=== PATIENT | female | born 1940 | race Hispanic/Latino ===

== ENCOUNTER 2017-05-28 07:20 | Day surgery (SDC) | payer MEDICARE ==
[~2017-05-28] VITALS: Ht 162.6 cm; Wt 83.9 kg
[~2017-05-28 07:20] MED LIST: DULO60CA44 PO; ESOM40CA PO; FENT25PAT TD; HYDR-4060 PO; LEVO75TA10 PO; LINA145C PO; LOSA50TA37 PO; NITR0.4T50 SL; SODIUM CHLORIDE 0.9% 1000ML 1,000 ML IV ONE
[2017-05-28 08:04] VITALS: BP 124/61
[2017-05-28 08:08] LABS: BASOPHILS % (AUTO) 0.8 % (0.0-5.0); EOSINOPHILS % (AUTO) 2.1 % (0.0-8.0); HEMATOCRIT 38.1 % (36-48); LYMPHOCYTES % (AUTO) 32.5 % (21.0-51.0); MEAN CORPUSCULAR HEMOGLOBIN 27.3 pg (27.0-33.0); MEAN CORPUSCULAR HGB CONC 32.9 g/dL (32.0-36.0); MEAN CORPUSCULAR VOLUME 82.9 fL (79-99); MONOCYTES % (AUTO) 9.2 % (3.0-13.0); NEUTROPHILS % (AUTO) 55.4 % (40.0-77.0); NUCLEATED RED BLOOD CELLS 0.2 % (0.0-0.19); PLATELET COUNT (AUTO) 110 K/uL (130-400); RED BLOOD CELL COUNT(AUTO) 4.59 MIL/uL (4.00-5.50); RED CELL DISTRIBUTION WIDTH 14.7 % (11.0-15.5); WHITE BLOOD COUNT (AUTO) 5.6 K/uL (4.8-10.8)
[2017-05-28 08:10] VITALS: BP 124/61
[2017-05-28] MEDS ORDERED: ERGO500014 PO (08:17)
[2017-05-28] MEDS ORDERED: LECI400C4 PO (08:24)
[2017-05-28] MEDS ORDERED: CYAN500 PO (08:24)
[2017-05-28] MEDS ORDERED: PREM625 PO (08:24)
[2017-05-28] MEDS ORDERED: PROPOFOL 10 MG/ML 20ML VIAL IV ONE (09:28)
[2017-05-28] MEDS ORDERED: FENTANYL CITRATE PF 50 MCG/1 ML 2ML VIAL ONE (09:28)
[2017-05-28 09:38] VITALS: BP 93/48
== END 2017-05-28 10:23 ==
LOC: DAH 07:20
PROVIDERS: ATTEND Internal Medicine Gastroenterology
DX: K22.2 Esophageal obstruction (principal); Z68.31 Body mass index [BMI] 31.0-31.9, adult; K21.9 Gastro-esophageal reflux disease without esophagitis; Z86.010 Personal history of colon polyps; K57.30 Diverticulosis of large intestine without perforation or abscess without bleeding; I10 Essential (primary) hypertension; M19.90 Unspecified osteoarthritis, unspecified site; G89.29 Other chronic pain; M41.9 Scoliosis, unspecified; Z98.890 Other specified postprocedural states; Z88.0 Allergy status to penicillin; Z88.8 Allergy status to other drugs, medicaments and biological substances; G43.909 Migraine, unspecified, not intractable, without status migrainosus
CPT/HCPCS: 36415; 43248; 85025; 93005; A4606; J2704; J3010; J7030

== ENCOUNTER → 2017-07-06 | Outpatient (CLI) | payer MEDICARE ==
[~2017-07-06] MED LIST changes: +CYAN500 PO; +ERGO500014 PO; -ESOM40CA PO; +LECI400C4 PO; +PREM625 PO; -SODIUM CHLORIDE 0.9% 1000ML 1,000 ML IV ONE
== END ==
LOC: RAH 08:23
PROVIDERS: ATTEND Internal Medicine Gastroenterology
DX: K22.8 Other specified diseases of esophagus (principal); R13.14 Dysphagia, pharyngoesophageal phase
CPT/HCPCS: 74220

== ENCOUNTER → 2018-04-26 | Outpatient (CLI) | payer MEDICARE ==
[~2018-04-26] MED LIST changes: -DULO60CA44 PO; -ERGO500014 PO; +FENT-77 TD; -FENT25PAT TD; -LECI400C4 PO; -LOSA50TA37 PO; +LOSA50TA64 PO; -PREM625 PO; +trintellix
[2018-04-26 10:38] LABS: CREATININE 0.8 mg/dL (0.5-1.5)
== END | disposition home or self-care (01) ==
LOC: LAB 09:49
PROVIDERS: ATTEND Internal Medicine
DX: K46.9 Unspecified abdominal hernia without obstruction or gangrene (principal)
CPT/HCPCS: 36415; 82565; 84520

== ENCOUNTER → 2018-05-04 | Outpatient (CLI) | payer MEDICARE ==
[~2018-05-04] MED LIST changes: +IOHEXOL-350 75 ML VIAL IV ONE
== END | disposition home or self-care (01) ==
LOC: RAH 07:31
PROVIDERS: ATTEND Internal Medicine
DX: K57.90 Diverticulosis of intestine, part unspecified, without perforation or abscess without bleeding (principal); K46.9 Unspecified abdominal hernia without obstruction or gangrene; N32.89 Other specified disorders of bladder; I70.90 Unspecified atherosclerosis; M47.815 Spondylosis without myelopathy or radiculopathy, thoracolumbar region
CPT/HCPCS: 74178; Q9967

== ENCOUNTER → 2018-05-25 | Outpatient (CLI) | payer MEDICARE ==
[~2018-05-25] MED LIST changes: -IOHEXOL-350 75 ML VIAL IV ONE
== END | disposition home or self-care (01) ==
LOC: RAH 12:20
PROVIDERS: ATTEND Internal Medicine
DX: M47.812 Spondylosis without myelopathy or radiculopathy, cervical region (principal)
CPT/HCPCS: 70360; 72040

== ENCOUNTER 2018-10-22 12:11 | Emergency (ER) | payer MEDICARE ==
[~2018-10-22 12:11] MED LIST changes: -CYAN500 PO; +CYAN500T4 PO
[2018-10-22] MEDS ORDERED: ONDANSETRON ODT 4 MG TAB ONE (12:30)
[2018-10-22] MEDS ORDERED: HYDROCODONE/ACETAMINOPHEN 5/325 MG TAB ONE (12:31)
== END 2018-10-22 14:48 | disposition home or self-care (01) ==
LOC: EDH 12:11
DX: S40.011A Contusion of right shoulder, initial encounter (principal); S70.01XA Contusion of right hip, initial encounter; S00.03XA Contusion of scalp, initial encounter; I10 Essential (primary) hypertension; K21.9 Gastro-esophageal reflux disease without esophagitis; Z96.653 Presence of artificial knee joint, bilateral; Z98.890 Other specified postprocedural states; Z88.0 Allergy status to penicillin; Z88.2 Allergy status to sulfonamides; Z88.8 Allergy status to other drugs, medicaments and biological substances; W18.39XA Other fall on same level, initial encounter; Y93.01 Activity, walking, marching and hiking; Y92.89 Other specified places as the place of occurrence of the external cause; Y99.8 Other external cause status
CPT/HCPCS: 70450; 71045; 72131; 73030; 73502; 73562

== ENCOUNTER → 2018-10-28 | Outpatient (CLI) | payer MEDICARE | END | disposition home or self-care (01) | LOC: RAH 11:15 | PROVIDERS: ATTEND Internal Medicine | DX: S49.91XA Unspecified injury of right shoulder and upper arm, initial encounter (principal); M25.511 Pain in right shoulder; W19.XXXA Unspecified fall, initial encounter; Y93.89 Activity, other specified; Y92.89 Other specified places as the place of occurrence of the external cause; Y99.8 Other external cause status | CPT/HCPCS: 73030; 73060 ==

== ENCOUNTER → 2019-01-10 | Outpatient (CLI) | payer MEDICARE ==
[~2019-01-10] MED LIST changes: -CYAN500T4 PO; +CYAN500T63 PO
== END | disposition home or self-care (01) ==
LOC: RAH 13:52
PROVIDERS: ATTEND Anesthesiology
DX: M75.51 Bursitis of right shoulder (principal); Z96.611 Presence of right artificial shoulder joint
CPT/HCPCS: 73200

== ENCOUNTER → 2019-02-15 | Outpatient (CLI) | payer MEDICARE | END | disposition home or self-care (01) | LOC: RAH 11:01 | PROVIDERS: ATTEND Neuromusculoskeletal Medicine & OMM | DX: M43.26 Fusion of spine, lumbar region (principal) | CPT/HCPCS: 72114 ==

== ENCOUNTER → 2019-02-20 | Outpatient (CLI) | payer MEDICARE ==
[2019-02-20 12:06] LABS: CREATININE 0.8 mg/dL (0.5-1.5)
== END | disposition home or self-care (01) ==
LOC: LAB 11:14
PROVIDERS: ATTEND Neuromusculoskeletal Medicine & OMM
DX: M54.5 Low back pain (principal); M25.561 Pain in right knee; M25.562 Pain in left knee
CPT/HCPCS: 36415; 82565; 84520

== ENCOUNTER → 2019-02-27 | Outpatient (CLI) | payer MEDICARE ==
[~2019-02-27] MED LIST changes: +GADODIAMIDE 10 MMOL/20 ML VIAL IV ONE
== END | disposition home or self-care (01) ==
LOC: RAH 10:30
PROVIDERS: ATTEND Neuromusculoskeletal Medicine & OMM
DX: M51.86 Other intervertebral disc disorders, lumbar region (principal)
CPT/HCPCS: 72158; A9579

== ENCOUNTER → 2019-07-05 | Outpatient (CLI) | payer MEDICARE ==
[~2019-07-05] MED LIST changes: -GADODIAMIDE 10 MMOL/20 ML VIAL IV ONE
== END | disposition home or self-care (01) ==
LOC: RAH 13:26
PROVIDERS: ATTEND Anesthesiology
DX: M50.30 Other cervical disc degeneration, unspecified cervical region (principal); R51 Headache; M99.01 Segmental and somatic dysfunction of cervical region; Z98.1 Arthrodesis status
CPT/HCPCS: 70450; 72040

== ENCOUNTER → 2019-07-10 | Outpatient (CLI) | payer MEDICARE | END | disposition home or self-care (01) | LOC: RAH 10:17 | PROVIDERS: ATTEND Anesthesiology | DX: M50.30 Other cervical disc degeneration, unspecified cervical region (principal); M99.01 Segmental and somatic dysfunction of cervical region; Z98.1 Arthrodesis status | CPT/HCPCS: 72141 ==

== ENCOUNTER → 2019-08-17 | Outpatient (CLI) | payer MEDICARE | END | disposition home or self-care (01) | LOC: RAH 11:20 | PROVIDERS: ATTEND Internal Medicine | DX: M19.031 Primary osteoarthritis, right wrist (principal); M25.851 Other specified joint disorders, right hip; M85.89 Other specified disorders of bone density and structure, multiple sites; M16.11 Unilateral primary osteoarthritis, right hip; Z96.611 Presence of right artificial shoulder joint; Z96.651 Presence of right artificial knee joint | CPT/HCPCS: 73030; 73110; 73502; 73562 ==

== ENCOUNTER → 2020-11-20 | Outpatient (CLI) | payer MEDICARE ==
[~2020-11-20] MED LIST changes: -CYAN500T63 PO; +CYAN500T9 PO
== END | disposition home or self-care (01) ==
LOC: RAH 15:41
PROVIDERS: ATTEND Internal Medicine
DX: M54.5 Low back pain (principal)
CPT/HCPCS: 72220

== ENCOUNTER → 2021-04-18 | Outpatient (CLI) | payer MEDICARE ==
[~2021-04-18] MED LIST changes: +GADOTERATE MEGLUMINE 10 MMOL/20 ML VIAL IV ONE
== END | disposition home or self-care (01) ==
LOC: RAH 08:45
DX: M51.36 Other intervertebral disc degeneration, lumbar region (principal); M47.816 Spondylosis without myelopathy or radiculopathy, lumbar region
CPT/HCPCS: 72158; A9575

== ENCOUNTER 2021-07-19 14:32 | Emergency (ER) | payer MEDICARE ==
[~2021-07-19] VITALS: Ht 152.4 cm; Wt 68.9 kg
[~2021-07-19 14:32] MED LIST changes: -GADOTERATE MEGLUMINE 10 MMOL/20 ML VIAL IV ONE
[2021-07-19] MEDS ORDERED: IBUPROFEN 600 MG TABLET PO ONE (16:00)
[2021-07-19 16:48] VITALS: BP 125/65
== END 2021-07-19 16:48 | disposition home or self-care (01) ==
LOC: EDH 14:32
DX: S00.83XA Contusion of other part of head, initial encounter (principal); S80.01XA Contusion of right knee, initial encounter; S60.211A Contusion of right wrist, initial encounter; S70.01XA Contusion of right hip, initial encounter; S90.01XA Contusion of right ankle, initial encounter; Z88.0 Allergy status to penicillin; Z88.2 Allergy status to sulfonamides; Z98.1 Arthrodesis status; Z79.1 Long term (current) use of non-steroidal anti-inflammatories (NSAID); Z79.899 Other long term (current) drug therapy; W01.0XXA Fall on same level from slipping, tripping and stumbling without subsequent striking against object, initial encounter; Y93.01 Activity, walking, marching and hiking; Y92.89 Other specified places as the place of occurrence of the external cause; Y99.8 Other external cause status
CPT/HCPCS: 70450; 72125; 73110; 73502; 73562; 73610

== ENCOUNTER → 2022-05-06 | Outpatient (CLI) | payer MEDICARE | END | disposition home or self-care (01) | LOC: RAH 10:48 | PROVIDERS: ATTEND Internal Medicine | DX: M54.9 Dorsalgia, unspecified (principal); M25.561 Pain in right knee; M25.562 Pain in left knee; M54.2 Cervicalgia; W19.XXXA Unspecified fall, initial encounter; T14.90XA Injury, unspecified, initial encounter | CPT/HCPCS: 72040; 72110 ==

== ENCOUNTER 2022-09-07 15:23 | Emergency (ER) | payer MEDICARE ==
[~2022-09-07] VITALS: Ht 165.1 cm; Wt 69.9 kg
[2022-09-07 16:55] VITALS: BP 122/61
[2022-09-07 18:00] LABS: BASOPHILS % (AUTO) 0.5 % (0.0-5.0); HEMATOCRIT 37.8 % (36-48); LYMPHOCYTES % (AUTO) 25.6 % (21.0-51.0); MEAN CORPUSCULAR HEMOGLOBIN 27.6 pg (27.0-33.0); MEAN CORPUSCULAR HGB CONC 31.7 g/dL (32.0-36.0); MEAN CORPUSCULAR VOLUME 86.9 fL (79-99); MONOCYTES % (AUTO) 7.4 % (3.0-13.0); NEUTROPHILS % (AUTO) 65.2 % (40.0-77.0); PLATELET COUNT (AUTO) 95 K/uL (130-400); RED BLOOD CELL COUNT(AUTO) 4.35 MIL/uL (4.00-5.50); WHITE BLOOD COUNT (AUTO) 6.2 K/uL (4.8-10.8)
[2022-09-07 18:19] LABS: APPEARANCE,URINE CLEAR (CLEAR); BILIRUBIN,URINE NEGATIVE (NEGATIVE); COLOR,URINE LIGHT-YELLOW (YELLOW); GLUCOSE, URINE (UA) NEGATIVE (NEGATIVE); KETONES,URINE NEGATIVE (NEGATIVE); LEUKOCYTE ESTERASE ,URINE NEGATIVE Leu/uL (NEGATIVE); NITRATE,URINE NEGATIVE (NEGATIVE); PH,URINE 5.5 (5.0-8.0); PROTEIN,URINE NEGATIVE (NEGATIVE); UROBILINOGEN,URINE 0.2 mg/dL (0.2-1.0)
[2022-09-07 18:19] LABS: CREATININE 0.9 mg/dL (0.5-1.5); POTASSIUM 4.5 mmol/L (3.5-5.1)
[2022-09-07 18:31] LABS: ALBUMIN 3.9 g/dL (3.5-5.0); TOTAL PROTEIN, SERUM 6.9 g/dL (6.0-8.3)
[2022-09-07 18:44] LABS: BACTERIA,URINE RARE /HPF (None Seen); WBC,URINE 0-1 /HPF (0-1)
[2022-09-07] MEDS ORDERED: CYCL10TA16 PO (18:58)
[2022-09-07] MEDS ORDERED: IBUP-2070 PO (18:58)
[2022-09-07] MEDS ORDERED: IBUPROFEN 600 MG TABLET PO ONE (19:00)
[2022-09-07] MEDS ORDERED: CYCLOBENZAPRINE HCL 10 MG TABLET PO ONE (19:00)
== END 2022-09-07 19:16 | disposition home or self-care (01) ==
LOC: EDH 15:23
DX: S16.1XXA Strain of muscle, fascia and tendon at neck level, initial encounter (principal); S00.03XA Contusion of scalp, initial encounter; S59.912A Unspecified injury of left forearm, initial encounter; Z88.0 Allergy status to penicillin; Z88.2 Allergy status to sulfonamides; Z88.8 Allergy status to other drugs, medicaments and biological substances; Z79.899 Other long term (current) drug therapy; Z90.89 Acquired absence of other organs; Z90.710 Acquired absence of both cervix and uterus; Z20.822 Contact with and (suspected) exposure to COVID-19; W18.30XA Fall on same level, unspecified, initial encounter; Y93.89 Activity, other specified; Y92.89 Other specified places as the place of occurrence of the external cause; Y99.8 Other external cause status
CPT/HCPCS: 99285; 70450; 71045; 87635; 84484; 80053; 85025; 87880; 87804 ×2; 83605; 81001; 36415; 73070; 73090; 73130; 73060; 73030; 72125; 74176; 93005; C9803

== ENCOUNTER 2022-09-24 08:42 | Emergency (ER) | payer MEDICARE ==
[~2022-09-24] VITALS: Ht 165.1 cm; Wt 70.8 kg
[2022-09-24 08:42] VITALS: BP 150/81
[~2022-09-24 08:42] MED LIST changes: +CYCL10TA16 PO; +IBUP-2070 PO
[2022-09-24] MEDS ORDERED: BACITRACIN 1 EACH PACKET TP ONE (09:30)
[2022-09-24 09:39] LABS: BASOPHILS % (AUTO) 0.7 % (0.0-5.0); EOSINOPHILS % (AUTO) 2.2 % (0.0-8.0); HEMATOCRIT 39.9 % (36-48); LYMPHOCYTES % (AUTO) 25.4 % (21.0-51.0); MEAN CORPUSCULAR HGB CONC 30.8 g/dL (32.0-36.0); MEAN CORPUSCULAR VOLUME 87.5 fL (79-99); MONOCYTES % (AUTO) 8.3 % (3.0-13.0); NEUTROPHILS % (AUTO) 63.2 % (40.0-77.0); PLATELET COUNT (AUTO) 102 K/uL (130-400); RED BLOOD CELL COUNT(AUTO) 4.56 MIL/uL (4.00-5.50); RED CELL DISTRIBUTION WIDTH 14.4 % (11.0-15.5); WHITE BLOOD COUNT (AUTO) 4.6 K/uL (4.8-10.8)
[2022-09-24 09:49] LABS: INR 1.01 (0.85-1.15)
[2022-09-24 09:51] LABS: PARTIAL THROMBOPLASTIN TIME 26.7 SEC (26.3-35.5)
[2022-09-24 09:58] LABS: ALBUMIN 3.6 g/dL (3.5-5.0); CREATININE 0.8 mg/dL (0.5-1.5); POTASSIUM 4.5 mmol/L (3.5-5.1); TOTAL PROTEIN, SERUM 6.8 g/dL (6.0-8.3)
[2022-09-24] MEDS ORDERED: TETANUS/DIPHTHERIA TOXOID [ADULT] 0.5 ML VIAL IM ONE (10:00)
[2022-09-24] MEDS ORDERED: IBUP-2070 PO (11:08)
== END 2022-09-24 11:20 | disposition home or self-care (01) ==
LOC: EDH 08:42
DX: S43.492A Other sprain of left shoulder joint, initial encounter (principal); S53.492A Other sprain of left elbow, initial encounter; S60.211A Contusion of right wrist, initial encounter; S60.512A Abrasion of left hand, initial encounter; M54.9 Dorsalgia, unspecified; Z90.49 Acquired absence of other specified parts of digestive tract; Z90.710 Acquired absence of both cervix and uterus; Z79.899 Other long term (current) drug therapy; Z87.19 Personal history of other diseases of the digestive system; Z88.0 Allergy status to penicillin; Z88.2 Allergy status to sulfonamides; Z88.8 Allergy status to other drugs, medicaments and biological substances; W18.39XA Other fall on same level, initial encounter; Y93.89 Activity, other specified; Y92.89 Other specified places as the place of occurrence of the external cause; Y99.8 Other external cause status
CPT/HCPCS: 36415; 73030; 73070; 73100; 80053; 84484; 85025; 85610; 85730; 90471; 90714; 93005

== ENCOUNTER 2022-11-07 19:52 | Emergency (ER) | payer MEDICARE ==
[~2022-11-07] VITALS: Ht 165.1 cm; Wt 69.9 kg
[2022-11-07] MEDS ORDERED: ACETAMINOPHEN 500 MG TABLET ONE (20:00)
[2022-11-07] MEDS ORDERED: ONDANSETRON ODT 4MG TAB ONE (20:01)
[2022-11-07 20:35] LABS: INFLUENZA TYPE A Negative For Type A (NEGATIVE); INFLUENZA TYPE B Negative For Type B (NEGATIVE)
[2022-11-07 20:49] LABS: BASOPHILS # (AUTO) 0.02 K/uL (0.00-0.20); BASOPHILS % (AUTO) 0.2 % (0.0-5.0); EOSINOPHILS # (AUTO) 0.01 K/uL (0.00-0.70); EOSINOPHILS % (AUTO) 0.1 % (0.0-8.0); HEMATOCRIT 41.8 % (36-48); IMMATURE GRANULOCYTE ABSOLUTE 0.02 K/uL (0-1); LYMPHOCYTES # (AUTO) 1.1 K/uL (1.0-4.8); LYMPHOCYTES % (AUTO) 12.9 % (21.0-51.0); MEAN CORPUSCULAR HEMOGLOBIN 27.4 pg (27.0-33.0); MEAN CORPUSCULAR HGB CONC 31.8 g/dL (32.0-36.0); MONOCYTES # (AUTO) 0.6 K/uL (0.1-1.0); MONOCYTES % (AUTO) 7.4 % (3.0-13.0); NEUTROPHILS # (AUTO) 6.6 K/uL (1.8-7.7); NEUTROPHILS % (AUTO) 79.2 % (40.0-77.0); PLATELET COUNT (AUTO) 95 K/uL (130-400); RED BLOOD CELL COUNT(AUTO) 4.86 MIL/uL (4.00-5.50); WHITE BLOOD COUNT (AUTO) 8.4 K/uL (4.8-10.8)
[2022-11-07 20:57] LABS: SARS-CoV-2, RNA, NAAT POSITIVE SARS CoV-2 (NEGATIVE)
[2022-11-07 21:12] LABS: CREATININE 0.8 mg/dL (0.5-1.5); POTASSIUM 3.9 mmol/L (3.5-5.1)
[2022-11-07 21:20] LABS: ALBUMIN 3.8 g/dL (3.5-5.0); BILIRUBIN,TOTAL 0.7 mg/dL (0.2-1.0); TOTAL PROTEIN, SERUM 7.6 g/dL (6.0-8.3)
[2022-11-07 21:21] VITALS: TEMP 99.1
[2022-11-07] MEDS ORDERED: 0.9%NACL 1000ML 1,000 ML IV SCH (21:30)
[2022-11-07] MEDS ORDERED: IBUP-1493 PO (22:09)
[2022-11-07] MEDS ORDERED: FAMO-136 PO (22:09)
[2022-11-07] MEDS ORDERED: ALBU90AE2 IH (22:09)
[2022-11-07] MEDS ORDERED: ONDA-104 PO (22:09)
[2022-11-07] MEDS ORDERED: DIPH1TAB PO (22:09)
[2022-11-07 22:22] VITALS: BP 131/65; PULSE 74; RESP 16; O2SAT 98
== END 2022-11-07 22:38 | disposition home or self-care (01) ==
LOC: EDH 19:52
DX: U07.1 COVID-19 (principal); K52.9 Noninfective gastroenteritis and colitis, unspecified; E86.0 Dehydration; Z79.1 Long term (current) use of non-steroidal anti-inflammatories (NSAID); Z79.890 Hormone replacement therapy; Z79.899 Other long term (current) drug therapy; Z88.0 Allergy status to penicillin; Z88.2 Allergy status to sulfonamides; Z90.49 Acquired absence of other specified parts of digestive tract
CPT/HCPCS: 99284; 71045; 87635; 80053; 85025; 87804 ×2; 83605; 36415; C9803

== ENCOUNTER → 2023-03-08 | Outpatient (CLI) | payer MEDICARE ==
[~2023-03-08] MED LIST changes: +ALBU90AE2 IH; +DIPH1TAB PO; +FAMO-136 PO; +IBUP-1493 PO; -IBUP-2070 PO; +ONDA-104 PO
== END | disposition home or self-care (01) ==
LOC: RAH 13:21
PROVIDERS: ATTEND Physical Medicine & Rehabilitation
DX: R26.89 Other abnormalities of gait and mobility (principal)
CPT/HCPCS: 70551

== ENCOUNTER → 2023-06-30 | Outpatient (CLI) | payer MEDICARE | END | disposition home or self-care (01) | LOC: RAH 11:39 | PROVIDERS: ATTEND Nurse Practitioner Family | DX: M25.511 Pain in right shoulder (principal) | CPT/HCPCS: 73030 ==

== ENCOUNTER 2023-08-11 05:34 | Day surgery (SDC) | payer MEDICARE ==
[~2023-08-11] VITALS: Ht 165.1 cm; Wt 68.0 kg
[2023-08-11] VITALS (12 sets, daily range): BP systolic 124–151; BP diastolic 54–66; PULSE 54–68; RESP 14–19
[~2023-08-11 05:34] MED LIST changes: -ALBU90AE2 IH; -CYCL10TA16 PO; -DIPH1TAB PO; -FAMO-136 PO; -FENT-77 TD; -IBUP-1493 PO; -LEVO75TA10 PO; -NITR0.4T50 SL; -ONDA-104 PO; +SYNTHROID PO; +TRINTELLIX PO; -trintellix
[2023-08-11] MEDS: 0.9%NACL 1000ML 1,000 ML IV ONE (06:23)
[2023-08-11] MEDS ORDERED: PROPOFOL 10 MG/ML 20ML VIAL IV ONE (07:06)
== END 2023-08-11 08:30 | disposition home or self-care (01) ==
LOC: ENDO 05:34 → DAH 05:34 → ENDO 08:30
PROVIDERS: ATTEND Internal Medicine Gastroenterology
DX: R13.10 Dysphagia, unspecified (principal); K29.50 Unspecified chronic gastritis without bleeding; K22.2 Esophageal obstruction; K21.9 Gastro-esophageal reflux disease without esophagitis; E03.9 Hypothyroidism, unspecified; F41.9 Anxiety disorder, unspecified; K59.04 Chronic idiopathic constipation; R63.4 Abnormal weight loss; M81.0 Age-related osteoporosis without current pathological fracture; Z82.49 Family history of ischemic heart disease and other diseases of the circulatory system; Z83.3 Family history of diabetes mellitus; Z80.9 Family history of malignant neoplasm, unspecified; Z88.0 Allergy status to penicillin; Z88.8 Allergy status to other drugs, medicaments and biological substances; Z86.010 Personal history of colon polyps; Z79.890 Hormone replacement therapy; Z98.890 Other specified postprocedural states
CPT/HCPCS: 43239; 43248; J7030 ×2; J2704; A4620; A4215 ×2; A4223; A7002; A4222; A4221; A4663; A4606; J3490

== ENCOUNTER → 2023-09-01 | Outpatient (CLI) | payer MEDICARE | END | disposition home or self-care (01) | LOC: RAH 08:45 | PROVIDERS: ATTEND Internal Medicine Gastroenterology | DX: R13.10 Dysphagia, unspecified (principal) | CPT/HCPCS: 74220 ==

== ENCOUNTER → 2024-03-30 | Outpatient (CLI) | payer MEDICARE ==
--- NOTE | 2024-03-30 11:28 | HMCIMG ---
US SOFT TISSUE NECK REASON: SOFT TISSUE DISORDER,UNSPECIFIED. COMPARISON: None TECHNIQUE: Soft tissue neck ultrasound study was performed with specific attention given to the region of interest in the pulsatile mass area. FINDINGS: At the region of interest, there is left internal carotid artery with peak systolic velocity of 114 cm/s with high bifurcation. No mass lesion is seen otherwise. IMPRESSION: High bifurcation left internal carotid artery is seen at the region of interest. No mass lesion is seen.
== END | disposition home or self-care (01) ==
LOC: RAH 09:55
PROVIDERS: ATTEND Internal Medicine
DX: R22.1 Localized swelling, mass and lump, neck (principal)
CPT/HCPCS: 76536

== ENCOUNTER 2024-04-28 11:26 | Emergency (ER) | payer MEDICARE ==
[~2024-04-28] VITALS: Ht 165.1 cm; Wt 69.9 kg
--- NOTE | 2024-04-28 11:46 | ERN ---
ED Note History of Present Illness Stated Complaint: FALL Chief Complaint: Mechanical Fall Time Seen by MD: 11:37 Dictation: PATIENT IS AN 83-YEAR-OLD FEMALE HERE WITH COMPLAINTS OF LEFT TEMPOROPARIETAL PAIN, LEFT HIP, LEFT WRIST, BILATERAL KNEE PAIN STATUS POST SAME LEVEL TRIP FALL WALKING INTO A STORE YESTERDAY AT 14:00 HOURS. SHE STATES SHE WAS WALKING IN WHEN SHE TRIPPED ON A PIECE OF CONCRETE, STRUCK HER HEAD. NO LOC NO NAUSEA VOMITING NO BLOOD THINNERS AND DOES NOT MEET TRAUMA ALERT CRITERIA. SHE IS CURRENTLY AMBULATORY INTO TRIAGE WITH HER CANE AND HER AT THE BEDSIDE. NIH IS 0, HE STATES HER MENTATION IS BASELINE. SHE STATES SHE DID NOT GO TO THE HOSPITAL YESTERDAY BECAUSE SHE DID NOT HAVING ANY PAIN. Allergies: Coded Allergies: Penicillins (Unverified Allergy, Unknown, 02/07/16) Sulfa (Sulfonamide Antibiotics) (Unverified Allergy, Unknown, 05/28/17) sumatriptan (Unverified Allergy, Unknown, 02/07/16) Home Meds Reported Medications [Trintellix] No Conflict Check, 5 MG PO HS 08/09/23 [Synthroid] No Conflict Check, 88 MCG PO AM 08/09/23 Cyanocobalamin (Vitamin B-12) 500 Mcg Tab, 500 MCG PO HS, TAB 05/28/17 Linaclotide (Linzess) 145 Mcg Capsule, 145 MCG PO DAILY, CAP 02/07/16 Hydrocodone/Acetaminophen (Hydrocodon-Acetaminophen 5-325) 1 Each Tablet, 1 EACH PO [id number] PRN PRN for PAIN, TAB 02/07/16 Losartan Potassium (Losartan Potassium) 50 Mg Tablet, 50 MG PO DAILY, TAB 02/07/16 Past Medical History Past Medical History: Arthritis, COPD, Other Additional Past Medical Hx: THROMBOCYTOPENIA Surgical History: Other Surgical History Other: BACK SX X6 Family History: CAD, HTN Social History: Negative, Lives with family, Other History: Not Applicable RN Note Reviewed/Agreed w/PFSH: Yes Review of System Dictation CONSTITUTIONAL: NEGATIVE EXCEPT FOR HPI HEAD/FACE: NEGATIVE EXCEPT FOR HPI LEFT TEMPOROPARIETAL TENDERNESS NO ECCHYMOSIS EENT: NEGATIVE EXCEPT FOR HPI RESPIRATORY: NEGATIVE EXCEPT FOR HPI GASTROINTESTINAL/ABDOMINAL: NEGATIVE EXCEPT FOR HPI GENITOURINARY: NEGATIVE EXCEPT FOR HPI MUSCULOSKELETAL: NEGATIVE EXCEPT FOR HPI BILATERAL KNEE, LEFT HIP, LEFT WRIST PAIN NO SHORTENING OR ROTATION OF LOWER EXTREMITIES INTEGUMENTARY: NEGATIVE EXCEPT FOR HPI NEUROLOGICAL/PSYCH: NEGATIVE EXCEPT FOR HPI HEMATOLOGIC/LYMPHATIC: NEGATIVE EXCEPT FOR HPI ALL SYSTEMS NEGATIVE, EXCEPT NOTED ABOVE. 13 POINT REVIEW OF SYSTEMS ASSESSED AND ALL NEGATIVE EXCEPT FOR ABOVE. Initial Vital Sign VS Vital Signs Date Time Temp Pulse Resp B/P (MAP) Pulse Ox O2 Delivery O2 Flow Rate FiO2 04/28/24 11:28 98.1 64 16 131/69 95 0 04/28/24 11:36 Room Air* 21 Physical Exam Dictation VITAL SIGNS REVIEWED GENERAL APPEARANCE: ALERT, ORIENTED X 3, MILD ACUTE DISTRESS, WELL DEVELOPED, NOURISHED. HEAD AND FACE: LEFT TEMPOROPARIETAL TENDERNESS. NO ABRASIONS OR CONTUSIONS NO [place] OR RACCOON SIGN EYES: PERRL, PINK CONJUNCTIVAS, EYELID NO TRAUMA, ANTERIOR CHAMBER WITH ARCUS SENILIS. EARS: PINNAS INTACT AND NO SIGNS OF TRAUMA OR ERYTHEMA EAR CANALS CLEAR AND NO DISCHARGE TM NO ERYTHEMA NO HEMOTYMPANUM NOSE: NO DISCHARGE, NO BLEEDING. OROPHARYNX: MOUTH NORMAL, TONGUE PINK, PHARYNX CLEAR,NO ERYTHEMA, TONSILS NO EXUDATES, NO ABSCESSES NOTED, MUCOUS MEMBRANE MOIST NECK: SUPPLE, NON-TENDER, NO THYROMEGALY, NO MASSES, NO JVD, NO BRUITS NO NECK TENDERNESS BREAST:DEFERRED CHEST:NO TENDERNESS, NO CREPITUS, NO PARADOXICAL MOVEMENT, NO RETRACTIONS LUNGS:CLEAR, WELL-VENTILATED, SYMMETRIC, NO RALES, NO WHEEZING, NO RHONCHI, NO STRIDOR, GOOD BREATH SOUNDS BILATERALLY HEART: REGULAR RATE, REGULAR RHYTHM, NO MURMUR, NO GALLOPS VASCULAR: NO PERIPHERAL EDEMA, ABDOMEN: SOFT, POSITIVE BOWEL SOUNDS, NONDISTENDED, NO GUARDING, NONTENDER, NO REBOUND, NO MASSES NO HEPATOMEGALY, NO SPLENOMEGALY, NO VANEGAS'S SIGN, NO HERNIAS. RECTAL: DEFERRED GENITAL: DEFERRED NEUROLOGICAL: NORMAL SPEECH, MOTOR FUNCTION INTACT, SENSORY FUNCTION INTACT NIH INTACT AND PATIENT BASELINE PER HER AT BEDSIDE MUSCULOSKELETAL: NECK NONTENDER, FULL RANGE OF MOTION, BACK NONTENDER, FULL RANGE OF MOTION, EXTREMITIES: LEFT LEONID, LEFT HIP, BILATERAL KNEE PAIN. PATIENT AMBULATORY TO TRIAGE WITH CANE. SHORTENING OR ROTATION OF LOWER EXTREMITIES SKIN: COLOR PINK, DRY, NO TURGOR, NO RASH, NO LACERATIONS, NO ABRASIONS, NO CONTUSIONS. LYMPHATIC: DEFERRED Results (Laboratory/Radiology) Laboratory/Radiology Exam: NONCONTRAST CT BRAIN REASON: LEFT TEMPOROPARIETAL HEADACHE STATUS POST SAME LEVEL FALL YESTERDAY. COMPARISON: None. TECHNIQUE: Images are obtained from vertex to the skull base. The exam was performed without IV contrast. FINDINGS: There is normal appearing brain parenchyma. There are no focal mass lesions. There is is no evidence of intracranial hemorrhage or acute stroke. Ventricles and sulci appear normal. Posterior fossa and brainstem structures are unremarkable. Paranasal sinuses and remaining extracranial soft tissues appear normal as well. IMPRESSION: 1. Normal noncontrast CT brain. WRIST COMP 3+VWS LT REASON: LEFT WRIST PAIN STATUS POST TRIP FALL YESTERDAY TECHNIQUE: 3 views were obtained. FINDINGS: There is no evidence of fracture or dislocation. There is no joint effusion. The soft tissues appear unremarkable. There is no evidence of a radiopaque foreign body. 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 IMPRESSION: No acute findings. EE 3VWS RT REASON: BILATERAL KNEE PAIN STATUS POST TRIP FALL YESTERDAY 02:00 O'CLOCK TECHNIQUE: 3 views were obtained. FINDINGS: There is no evidence of fracture or dislocation. There is no joint effusion. The soft tissues appear unremarkable. There is no evidence of a radiopaque foreign body. There is a knee joint prosthesis in place, hardware appears intact. IMPRESSION: No acute findings. KNEE 3VWS LT REASON: BILATERAL KNEE PAIN STATUS POST TRIP FALL YESTERDAY 02:00 O'CLOCK TECHNIQUE: 3 views were obtained. FINDINGS: There is no evidence of fracture or dislocation. There is no joint effusion. The soft tissues appear unremarkable. There is no evidence of a radiopaque foreign body. There is a knee joint prosthesis in place, hardware appears intact. IMPRESSION: No acute findings. PELVIS X-RAY NEGATIVE EXCEPT FOR DEGENERATIVE CHANGE Labs Reviewed?: Yes ED Course ED Course Orders Procedure Category Date Status Time Acetaminophen 500mg PHA 04/28/24 Complete Tab (Tylenol 500mg T 12:00 Ct Head/Brain W/O CT 04/28/24 Resulted Contrast 11:40 Hip Unilat 2-3vw Left RAD 04/28/24 Taken 11:40 Wrist Comp 3+Vws Lt RAD 04/28/24 Resulted 11:40 Knee 3vws Lt RAD 04/28/24 Resulted 11:40 Knee 3vws Rt RAD 04/28/24 Resulted 11:40 Current Medications Medications (Trade) Dose Ordered Sig/Vinnie Route PRN Reason Start Time Stop Time Status Last Admin Dose Admin Acetaminophen (TYLenol 500MG TAB) 1,000 mg ONCE ONCE PO 04/28/24 12:00 04/28/24 12:01 DC 04/28/24 12:53 Vital Signs Date Time Temp Pulse Resp B/P (MAP) Pulse Ox O2 Delivery O2 Flow Rate FiO2 04/28/24 12:49 98.1 64 16 131/69 98 Room Air* 0 21 04/28/24 11:36 98.1 64 16 131/69 95 Room Air* 0 21 04/28/24 11:28 98.1 64 16 131/69 95 0 1420/PATIENT NEUROLOGICALLY INTACT SPEECH CLEAR AND MOVING ALL EXTREMITIES SHE AND MADE AWARE THAT SHE WILL BE SORE FOR SEVERAL DAYS, TAKE TYLENOL ARTHRITIS 650 MG [id number] NEEDED FOR PAIN, SEE HER PRIMARY CARE DOCTOR FOR FOLLOW UP Medical Decision Making MDM MDM: DIFFERENTIAL DIAGNOSIS: HEAD INJURY, SKULL FRACTURE, PELVIC FRACTURE/RIBS FRACTURE/KNEE FRACTURE/CLOSED HEAD INJURY RATIONALE: TESTS CONSIDERED AND ORDERED SECONDARY TO SHARED DECISION MAKING INCLUDE: RADIOLOGY PREVIOUS OUTSIDE RECORDS REVIEWED: OLD ER VISITS. RISK OF COMPLICATION AND/OR MORBIDITY OR MORTALITY OF PATIENT MANAGEMENT: NONE MEDICATIONS-PER MEDICATION RECONCILIATION NEED FOR HOSPITALIZATION: PATIENT DOES NOT MEET CRITERIA FOR HOSPITALIZATION. NO NEED FOR EMERGENCY MAJOR/MINOR SURGERY: NO THERE ARE NO SOCIAL CONCERNS WITH THIS PATIENT. PRESCRIPTION DRUG MANAGEMENT NONE PRESCRIPTIONS WILL INCLUDE SYMPTOMATIC CARE PATIENT'S PRIOR EXTERNAL MEDICAL RECORDS FROM OTHER ER VISITS WERE REVIEWED BY ME INDICATED. PRIOR TESTING AND RESULTS FROM PREVIOUS VISITS WERE REVIEWED. PRIOR TESTS WERE TAKEN INTO ACCOUNT WITH MEDICAL DECISION MAKING AND RESOURCE UTILIZATION, INDEPENDENT HISTORIAN/HISTORIANS WERE USED TO OBTAIN COMPLETE MEDICAL HISTORY. I INDEPENDENTLY INTERPRETED THE TEST THAT WERE PERFORMED, RESULTS WERE REVIEWED BY ME AND CONSIDERED FINDINGS ON RADIOLOGY IF ORDERED. MEDICAL MANAGEMENT AND EXAMINATION INTERPRETATION DISCUSSIONS WERE HAD BY ME WITH OTHER QUALIFIED HEALTHCARE PROFESSIONALS INDICATED FOR THE PATIENT'S CARE. DX & DISP Disposition: Discharge Departure Impression: Primary Impression: Contusion of scalp, initial encounter Additional Impressions: Contusion of left wrist, initial encounter, Contusion of knee, left, Contusion of knee, right, Pelvic contusion, Fall Condition: Stable Additional Instructions: FOLLOW-UP WITH PRIMARY CARE PROVIDER IN 1 TO 2 DAYS. TAKE MEDICATIONS DIRECTED HERE IN THE EMERGENCY ROOM. OKAY TO CONTINUE HOME MEDICATIONS UNLESS OTHERWISE DISCUSSED DURING YOUR VISIT IN THE EMERGENCY ROOM TODAY. RETURN TO YOUR NEAREST EMERGENCY ROOM IF SYMPTOMS WORSEN OR IF THERE IS NO IMPROVEMENT. CALL 911 IF YOU NEED IMMEDIATE ASSISTANCE. TAKE TYLENOL OR MOTRIN [id number] NEEDED AND IF NO CONTRAINDICATIONS ARE PRESENT. INCREASE ORAL HYDRATION. A WOUND CULTURE OR URINE CULTURE WAS ORDERED HERE IN THE EMERGENCY ROOM DEPARTMENT PLEASE FOLLOW-UP WITH PRIMARY CARE PROVIDER AND ADVISE THEM TO GET REPEAT PORTS FROM OUR FACILITY. IF YOU HAD ANY SAULO WRAP/SPLINTS THAT WERE APPLIED HERE, PLEASE DO NOT REMOVE THEM UNTIL YOU SEE YOUR PRIMARY CARE OR SPECIALTY. SUGGEST TYLENOL ARTHRITIS 650 MG/[id number] EVERY8 HOURS NEEDED FOR PAIN. APPLY WARM COMPRESSES PAIN THREE TO 4 TIMES A DAY HIS ACTIVITY TOLERATED. SEE YOUR PRIMARY CARE DOCTOR FOR FOLLOW UP. Referrals: DENITA LOPEZ MD (PCP) Time of Disposition: 14:20 I have reviewed the case, and I agree with, Diagnosis and Plan ADAN CEDENO NP Apr 28, 2024 11:45
--- NOTE | 2024-04-28 12:21 | HMCIMG ---
Exam: NONCONTRAST CT BRAIN REASON: LEFT TEMPOROPARIETAL HEADACHE STATUS POST SAME LEVEL FALL YESTERDAY. COMPARISON: None. TECHNIQUE: Images are obtained from vertex to the skull base. The exam was performed without IV contrast. FINDINGS: There is normal appearing brain parenchyma. There are no focal mass lesions. There is is no evidence of intracranial hemorrhage or acute stroke. Ventricles and sulci appear normal. Posterior fossa and brainstem structures are unremarkable. Paranasal sinuses and remaining extracranial soft tissues appear normal as well. IMPRESSION: 1. Normal noncontrast CT brain. CT was performed with one or more following dose reduction techniques: automated exposure control, adjustment of the mA and kv according to patient's size, or use of a iterative reconstruction technique.
--- NOTE | 2024-04-28 12:48 | HMCIMG ---
WRIST COMP 3+VWS LT REASON: LEFT WRIST PAIN STATUS POST TRIP FALL YESTERDAY TECHNIQUE: 3 views were obtained. FINDINGS: There is no evidence of fracture or dislocation. There is no joint effusion. The soft tissues appear unremarkable. There is no evidence of a radiopaque foreign body. 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 IMPRESSION: No acute findings.
--- NOTE | 2024-04-28 12:48 | HMCIMG ---
KNEE 3VWS RT REASON: BILATERAL KNEE PAIN STATUS POST TRIP FALL YESTERDAY 02:00 O'CLOCK TECHNIQUE: 3 views were obtained. FINDINGS: There is no evidence of fracture or dislocation. There is no joint effusion. The soft tissues appear unremarkable. There is no evidence of a radiopaque foreign body. There is a knee joint prosthesis in place, hardware appears intact. IMPRESSION: No acute findings.
[2024-04-28 12:49] VITALS: BP 131/69; PULSE 64; RESP 16; TEMP 98; O2SAT 98
--- NOTE | 2024-04-28 12:49 | HMCIMG ---
KNEE 3VWS LT REASON: BILATERAL KNEE PAIN STATUS POST TRIP FALL YESTERDAY 02:00 O'CLOCK TECHNIQUE: 3 views were obtained. FINDINGS: There is no evidence of fracture or dislocation. There is no joint effusion. The soft tissues appear unremarkable. There is no evidence of a radiopaque foreign body. There is a knee joint prosthesis in place, hardware appears intact. IMPRESSION: No acute findings.
[2024-04-28] MEDS: acetaMINOPHEN 500 MG TABLET PO ONE (12:53)
--- NOTE | 2024-04-28 16:46 | HMCIMG ---
HIP UNILAT 2-3VW LEFT REASON: LEFT LATERAL HIP PAIN STATUS POST SAME LEVEL SLIP FALL YESTERDAY TECHNIQUE: 3 views were obtained. FINDINGS: There is no evidence of fracture or dislocation. Joint spaces appear preserved. The soft tissues appear unremarkable. There is no evidence of a radiopaque foreign body. IMPRESSION: No acute findings.
== END 2024-04-28 14:39 | disposition home or self-care (01) ==
LOC: EDH 11:26
DX: S00.03XA Contusion of scalp, initial encounter (principal); S60.212A Contusion of left wrist, initial encounter; S80.02XA Contusion of left knee, initial encounter; S80.01XA Contusion of right knee, initial encounter; S30.0XXA Contusion of lower back and pelvis, initial encounter; M19.90 Unspecified osteoarthritis, unspecified site; J44.9 Chronic obstructive pulmonary disease, unspecified; Z79.899 Other long term (current) drug therapy; Z88.0 Allergy status to penicillin; Z88.2 Allergy status to sulfonamides; W18.39XA Other fall on same level, initial encounter; Y93.89 Activity, other specified; Y92.89 Other specified places as the place of occurrence of the external cause; Y99.8 Other external cause status
CPT/HCPCS: 70450; 73110; 73502; 73562; 99284

== ENCOUNTER → 2024-07-14 | Outpatient (CLI) | payer MEDICARE ==
--- NOTE | 2024-07-14 16:20 | HMCIMG ---
CT CHEST W/O CONTRAST HISTORY: COPD COMPARISON: None TECHNIQUE: Multiple sequential axial images of the chest were obtained from the thoracic inlet through upper abdomen. Patient was not given contrast through intravenous route. FINDINGS: COPD changes are seen. There are interstitial fibrosis with bronchiectasis. Coronary artery calcifications are seen. There is no evidence of pulmonary nodule or parenchymal disease. No pleural effusion or pericardial effusion is seen. There is no evidence of pneumothorax. There are normal size mediastinal and hilar lymph nodes. The heart is not enlarged. Degenerative changes of the thoracolumbar spine are present. There is no evidence of adrenal nodule. IMPRESSION: 1. No evidence of pulmonary nodule or effusion is seen. COPD. CT was performed with one or more following dose reduction techniques: automated exposure control, adjustment of the mA and kv according to patient's size, or use of a iterative reconstruction technique.
== END | disposition home or self-care (01) ==
LOC: RAH 10:11
PROVIDERS: ATTEND Nurse Practitioner Family
DX: J44.9 Chronic obstructive pulmonary disease, unspecified (principal); I25.10 Atherosclerotic heart disease of native coronary artery without angina pectoris; J47.9 Bronchiectasis, uncomplicated; J84.10 Pulmonary fibrosis, unspecified; M47.815 Spondylosis without myelopathy or radiculopathy, thoracolumbar region
CPT/HCPCS: 71250

== ENCOUNTER → 2024-07-26 | Outpatient (CLI) | payer MEDICARE ==
--- NOTE | 2024-07-26 12:42 | HMCIMG ---
LEFT WRIST RADIOGRAPHS -2 VIEWS INDICATION: Pain COMPARISON: None FINDINGS: AP, lateral, and oblique views. No evidence for acute fracture or subluxation. Scaphoid bone is intact. Moderate first carpometacarpal joint osteoarthropathy. Ulnar variance is within normal limits. Carpal alignment is well maintained. No radiopaque foreign body noted. IMPRESSION: Moderate first carpometacarpal joint osteoarthropathy without fracture or subluxation.
--- NOTE | 2024-07-26 12:42 | HMCIMG ---
LEFT SHOULDER RADIOGRAPHS - 2-3 VIEWS INDICATION: Pain COMPARISON: None FINDINGS: No evidence for acute fracture or dislocation. Acromioclavicular and glenohumeral alignments are well maintained. Visible portions of the left clavicle are intact. Nominal left acromioclavicular joint osteoarthropathy. IMPRESSION: Nominal left AC joint arthrosis.
== END | disposition home or self-care (01) ==
LOC: RAH 11:44
PROVIDERS: ATTEND Nurse Practitioner Family
DX: M19.012 Primary osteoarthritis, left shoulder (principal); M18.12 Unilateral primary osteoarthritis of first carpometacarpal joint, left hand; M25.512 Pain in left shoulder; M25.532 Pain in left wrist; W19.XXXA Unspecified fall, initial encounter; Y93.89 Activity, other specified; Y92.89 Other specified places as the place of occurrence of the external cause; Y99.8 Other external cause status
CPT/HCPCS: 73030; 73100

== ENCOUNTER → 2024-08-02 | Outpatient (CLI) | payer MEDICARE ==
--- NOTE | 2024-08-02 14:32 | HMCIMG ---
Superficial ultrasound for possible andrés Findings: No fluid collections or masses are seen. Significantly, there is no evidence of hematoma. No increased fluid throughout the visualized tissue planes is identified. No lymphadenopathy is identified. Impression: No evidence of hematoma or fluid collections or other abnormalities.
== END | disposition home or self-care (01) ==
LOC: RAH 12:03
PROVIDERS: ATTEND Internal Medicine
DX: R22.32 Localized swelling, mass and lump, left upper limb (principal); M25.532 Pain in left wrist
CPT/HCPCS: 76882

== ENCOUNTER 2024-10-28 21:25 | Emergency (ER) | payer MEDICARE ==
[~2024-10-28] VITALS: Ht 165.1 cm; Wt 68.9 kg
--- NOTE | 2024-10-28 21:30 | NUR ---
UA CUP PROVIDED
[2024-10-28 21:56] LABS: IMMATURE GRANULOCYTE ABSOLUTE 0.02 K/uL (0-1); NUCLEATED RED BLOOD CELLS 0.0 % (0.0-0.19); PLATELET COUNT (AUTO) 114 K/uL (130-400); RED BLOOD CELL COUNT(AUTO) 3.99 MIL/uL (4.00-5.50); RED CELL DISTRIBUTION WIDTH 13.7 % (11.0-15.5); WHITE BLOOD COUNT (AUTO) 5.8 K/uL (4.8-10.8)
[2024-10-28 22:08] LABS: APPEARANCE,URINE TURBID (CLEAR); GLUCOSE, URINE (UA) NEGATIVE (NEGATIVE); LEUKOCYTE ESTERASE ,URINE 500 Leu/uL (NEGATIVE); NITRATE,URINE 1+ (NEGATIVE); OCCULT BLOOD,URINE MODERATE (NEGATIVE)
[2024-10-28 22:11] LABS: ADD UA MICROSCOPIC YES
[2024-10-28 22:13] LABS: CREATININE 0.9 mg/dL (0.5-1.0); GLOMERULAR FILTR. RATE CALC 62.0 mL/min (>90); GLUCOSE,RANDOM 109.0 mg/dL (70-105); SODIUM SERUM 141.0 mmol/L (136-145); UREA NITROGEN, BLOOD 21.0 mg/dL (7-18)
[2024-10-28 22:16] LABS: NON-SQUAMOUS EPITHELIAL CELL 1 /HPF (0-2); OTHER CASTS, URINE 14 /LPF (None Seen); SQUAMOUS EPITHELIAL CELL,UR FEW /HPF (0-2); WBC CLUMP MANY /HPF (0-1)
[2024-10-28] MEDS: NITROFURANTOIN MONOHYD/M-CRYST 100 MG CAPSULE PO ONE (22:56)
[2024-10-28] MEDS ORDERED: NITR100C4 PO (23:21)
--- NOTE | 2024-10-28 23:21 | ERN ---
ED Note History of Present Illness Stated Complaint: PAINFUL UA Chief Complaint: Painful Urination Time Seen by MD: 21:40 Time Seen by Midlevel: 21:40 Dictation: The patient is an 84-year-old male with a history of hypertension, arthritis, COPD who presents to the emergency department with complaints of suprapubic abdominal pain and burning urination a week ago. Patient reports she has been treating herself with azo but has had no improvement. Patient reports an episode of nausea after taking azo but denies any vomiting diarrhea or constipation. Patient denies any fevers. Allergies: Coded Allergies: Penicillins (Unverified Allergy, Unknown, 02/07/16) Sulfa (Sulfonamide Antibiotics) (Unverified Allergy, Unknown, 05/28/17) sumatriptan (Unverified Allergy, Unknown, 02/07/16) Home Meds Reported Medications [Trintellix] No Conflict Check, 5 MG PO HS 08/09/23 [Synthroid] No Conflict Check, 88 MCG PO AM 08/09/23 Cyanocobalamin (Vitamin B-12) 500 Mcg Tab, 500 MCG PO HS, TAB 05/28/17 Linaclotide (Linzess) 145 Mcg Capsule, 145 MCG PO DAILY, CAP 02/07/16 Hydrocodone/Acetaminophen (Hydrocodon-Acetaminophen 5-325) 1 Each Tablet, 1 EACH PO [id number] PRN PRN for PAIN, TAB 02/07/16 Losartan Potassium (Losartan Potassium) 50 Mg Tablet, 50 MG PO DAILY, TAB 02/07/16 Past Medical History Past Medical History: Arthritis, COPD, Hypertension, Other Additional Past Medical Hx: THROMBOCYTOPENIA, BACK PAIN Surgical History: Hysterectomy, Other Surgical History Other: BACK SX X6,NECK, RT SHOULDER, BILATERAL KNEE Family History: CAD, HTN Social History: Negative, Lives with family, Other History: Not Applicable RN Note Reviewed/Agreed w/PFSH: Yes Review of System Dictation Constitutional: Negative for fever,chills, and weight loss Eyes: Negative for injury, pain,redness, and discharge ENT: Negative for injury,pain or swelling Cardiovascular: Negative for chest pain, palpitations, and edema Respiratory: Negative for shortness of breath, cough, and wheezing, Abdomen/GI: Negative for , nausea, vomiting, diarrhea, and constipation positive for suprapubic abdominal pain Back: Negative for injury and pain : Negative for injury, bleeding and discharge positive for burning urination MS/Extremity: Negative for injury and deformity Skin: Negative for rash, and discoloration Neuro: Negative for headache, weakness, numbness, tingling, and seizure Psych: Negative for suicide ideation, homicidal ideation, and hallucinations Initial Vital Sign VS Vital Signs Date Time Temp Pulse Resp B/P (MAP) Pulse Ox O2 Delivery O2 Flow Rate FiO2 10/28/24 21:27 97.9 71 16 152/62 96 Room Air 10/28/24 22:06 0 21 Physical Exam Dictation Vital Signs reviewed General Appearance: Alert, oriented x 3, no acute distress, well developed, nourished. Head and Face: non-traumatic. Eyes: PERRL, pink conjunctivas, eyelid no trauma, anterior chamber with arcus senilis. Ears: Pinnas intact and no signs of trauma or erythema ear canals clear and no discharge TM no erythema Nose: No discharge, no bleeding. Oropharynx: Mouth normal, tongue pink. pharynx clear,no erythema, tonsils no exudates, no abscesses noted, mucous membrane moist Neck: Supple, non-tender, no thyromegaly, no masses, no JVD, no bruits Breast:Deferred Chest:No tenderness, no crepitus, no paradoxical movement, no retractions Lungs:Clear, well-ventilated, symmetric, no rales, no wheezing, no rhonchi, no stridor, good breath sounds bilaterally Heart: Regular rate, regular rhythm, no murmur, no gallops Vascular: no peripheral edema, Abdomen: Soft, positive bowel sounds, nondistended, no guarding, nontender, no rebound, no masses no hepatomegaly, no splenomegaly, no Castro's sign, no hernias. Rectal: Deferred Genital: Deferred Neurological: Normal speech, motor function intact, sensory function intact Musculoskeletal: Neck nontender, full range of motion, back nontender, full ra nge of motion, Extremities: nontender, full range of motion Skin: Color pink, dry, no turgor, no rash, no lacerations, no abrasions, no contusions. Lymphatic: Deferred Results (Laboratory/Radiology) Laboratory/Radiology Laboratory Tests Test 10/28/24 21:45 10/28/24 21:49 Urine Color DARK-YELLOW (YELLOW) Urine Appearance TURBID (CLEAR) Urine pH 5.5 (5.0-8.0) Urine Specific [place] 1.011 (1.001-1.031) Urine Protein 70 mg/dL (NEGATIVE) H Urine Glucose (UA) NEGATIVE mg/dL (NEGATIVE) Urine Ketones NEGATIVE mg/dL (NEGATIVE) Urine Occult Blood MODERATE (NEGATIVE) H Urine Nitrate 1+ (NEGATIVE) H Urine Bilirubin 0.5 mg/dL (NEGATIVE) H Urine Urobilinogen 2.0 mg/dL (0.2-1.0) H Urine Leukocyte Esterase 500 Nir/uL (NEGATIVE) H Urine RBC 26-50 /HPF (0-1) H Urine WBC TNTC /HPF (0-1) H Urine WBC Clumps (Auto) MANY /HPF (0-1) Urine Squamous Epithelial Cells FEW /HPF (0-2) Urine Non-Squamous Epithelial Cells 1 /HPF (0-2) Urine Bacteria RARE /HPF (None Seen) Urine Other Casts 14 /LPF (None Seen) White Blood Count 5.8 K/uL (4.8-10.8) Red Blood Count 3.99 MIL/uL (4.00-5.50) L Hemoglobin 11.2 g/dL (12.0-16.0) L Hematocrit 35.4 % (36-48) L Mean Corpuscular Volume 88.7 fL (79-99) Mean Corpuscular Hemoglobin 28.1 pg (27.0-33.0) Mean Corpuscular Hemoglobin Concent 31.6 g/dL (32.0-36.0) L Red Cell Distribution Width 13.7 % (11.0-15.5) Platelet Count 114 K/uL (130-400) L Mean Platelet Volume 10.3 fL (7.5-10.5) Immature Granulocyte % (Auto) 0.3 % (0-1) Neutrophils (%) (Auto) 62.3 % (40.0-77.0) Lymphocytes (%) (Auto) 27.7 % (21.0-51.0) Monocytes (%) (Auto) 7.5 % (3.0-13.0) Eosinophils (%) (Auto) 1.9 % (0.0-8.0) Basophils (%) (Auto) 0.3 % (0.0-5.0) Neutrophils # (Auto) 3.6 K/uL (1.8-7.7) Lymphocytes # (Auto) 1.6 K/uL (1.0-4.8) Monocytes # (Auto) 0.4 K/uL (0.1-1.0) Eosinophils # (Auto) 0.11 K/uL (0.00-0.70) Basophils # (Auto) 0.02 K/uL (0.00-0.20) Absolute Immature Granulocyte (auto 0.02 K/uL (0-1) Nucleated Red Blood Cells 0.0 % (0.0-0.19) Sodium Level 141 mmol/L (136-145) Potassium Level 4.4 mmol/L (3.5-5.1) Chloride Level 104 mmol/L (101-111) Carbon Dioxide Level 30 mmol/L (21-32) Blood Urea Nitrogen 21 mg/dL (7-18) H Creatinine 0.9 mg/dL (0.5-1.0) Glomerular Filtration Rate Calc 62 mL/min (>90) Random Glucose 109 mg/dL (70-105) H Total Calcium 9.5 mg/dL (8.5-10.1) Labs Reviewed?: Yes ED Course ED Course Orders Procedure Category Date Status Time Urinalysis Profile LAB 10/28/24 Complete 21:41 Cbc With Differential LAB 10/28/24 Complete 21:41 Basic Metabolic Panel LAB 10/28/24 Complete 21:41 Culture Urine TERESA 10/28/24 In Process 22:11 Nitrofurantoin PHA 10/28/24 Complete Monohyd/M-Cryst 23:00 Current Medications Medications (Trade) Dose Ordered Sig/Vinnie Route PRN Reason Start Time Stop Time Status Last Admin Dose Admin Nitrofurantoin Macrocrystals (Macrobid) 100 mg ONCE ONCE PO 10/28/24 23:00 10/28/24 23:01 DC 10/28/24 22:56 Vital Signs Date Time Temp Pulse Resp B/P (MAP) Pulse Ox O2 Delivery O2 Flow Rate FiO2 10/28/24 22:06 98.4 68 18 128/58 98 Room Air* 0 21 10/28/24 21:27 97.9 71 16 152/62 96 Room Air Medical Decision Making MDM The patient is an 84-year-old male with a history of hypertension, arthritis, COPD who presents to the emergency department with complaints of suprapubic abdominal pain and burning urination a week ago. Patient reports she has been treating herself with azo but has had no improvement. Patient reports an episode of nausea after taking azo but denies any vomiting diarrhea or constipation. Patient denies any fevers. CBC showed no leukocytosis, mild normocytic anemia , chemistry showed no electrolyte imbalance, urinalysis positive for leukocyte esterase and nitrites. Patient will be sent home with the antibiotics. On physical exam patient is in no acute distress, nontoxic appearing, nontender abdomen to palpation, no CVA tenderness. Patient afebrile. Stable vital signs. Labs discussed with the patient. Patient instructed to follow up on urine cultures. Reports she will see her PCP on Wednesday. Differential diagnosis: UTI, pyelonephritis, dehydration Need for hospitalization: Patient does not meet criteria for hospitalization. There are no social concerns with this patient. DX & DISP Disposition: Discharge Departure Impression: Primary Impression: UTI (urinary tract infection) Condition: Stable Scripts Nitrofurantoin Monohyd/M-Cryst (Macrobid 100 mg Capsule) 100 Mg Capsule 1 CAP PO BID for 5 Days, #10 CAP 0 Refills Prov: LAUREN CHAPPELL 10/28/24 Additional Instructions: Your labs were unremarkable. Your urinalysis showed you have a urinary tract infection please follow up in your urine cultures. Take your medications as prescribed and until finished even if feeling better. If symptoms worsen please return to ER. Otherwise follow up with your primary doctor. FOLLOW-UP WITH PRIMARY CARE PROVIDER IN 1 TO 2 DAYS. TAKE MEDICATIONS DIRECTED HERE IN THE EMERGENCY ROOM. OKAY TO CONTINUE HOME MEDICATIONS UNLESS OTHERWISE DISCUSSED DURING YOUR VISIT IN THE EMERGENCY ROOM TODAY. RETURN TO YOUR NEAREST EMERGENCY ROOM IF SYMPTOMS WORSEN OR IF THERE IS NO IMPROVEMENT. CALL 911 IF YOU NEED IMMEDIATE ASSISTANCE. TAKE TYLENOL [id number] NEEDED AND IF NO CONTRAINDICATIONS ARE PRESENT. INCREASE ORAL HYDRATION. A WOUND CULTURE OR URINE CULTURE WAS ORDERED HERE IN THE EMERGENCY ROOM DEPARTMENT PLEASE FOLLOW-UP WITH PRIMARY CARE PROVIDER AND ADVISE THEM TO GET REPEAT PORTS FROM OUR FACILITY. IF YOU HAD ANY SAULO WRAP/SPLINTS THAT WERE APPLIED HERE, PLEASE DO NOT REMOVE THEM UNTIL YOU SEE YOUR PRIMARY CARE OR SPECIALTY. Referrals: DENITA LOPEZ MD (PCP) Time of Disposition: 23:19 I have reviewed the case, and I agree with, Diagnosis and Plan LAUREN CHAPPELL Oct 28, 2024 23:21
[2024-10-28 23:39] VITALS: BP 110/56; PULSE 64; RESP 20; TEMP 98.3; O2SAT 99
== END 2024-10-28 23:47 | disposition home or self-care (01) ==
LOC: EDH 21:25
DX: N39.0 Urinary tract infection, site not specified (principal); I10 Essential (primary) hypertension; J44.9 Chronic obstructive pulmonary disease, unspecified; M19.90 Unspecified osteoarthritis, unspecified site; Z79.899 Other long term (current) drug therapy; Z88.0 Allergy status to penicillin; Z88.2 Allergy status to sulfonamides; Z90.710 Acquired absence of both cervix and uterus; Z98.890 Other specified postprocedural states
CPT/HCPCS: 36415; 80048; 81001; 85025; 87086; 87186; 99283; 99284